=== PATIENT | female | born 1960 | race Caucasian/White ===

== ENCOUNTER → 2023-08-24 06:34 | Day surgery (SDC) | payer MEDICARE, OTHER, SELFPAY | LOC: GI 06:34 | PROVIDERS: ATTENDING PHYSICIAN Internal Medicine Gastroenterology | DX: K52.9 Noninfective gastroenteritis and colitis, unspecified (principal); Z53.8 Procedure and treatment not carried out for other reasons | CPT/HCPCS: 45378; G0378 ==

== ENCOUNTER → 2023-09-03 06:27 | Day surgery (SDC) | payer MEDICARE, OTHER, SELFPAY ==
--- NOTE | 2023-09-03 15:17 | VATNOTE ---
Multiple unsuccessful attempts to place PIV by two VAT RNs, as well as anesthesia. Midline placed.
== END ==
LOC: GI 06:27
PROVIDERS: ATTENDING PHYSICIAN Internal Medicine Gastroenterology
DX: K57.30 Diverticulosis of large intestine without perforation or abscess without bleeding (principal); K64.8 Other hemorrhoids; K29.80 Duodenitis without bleeding; K29.70 Gastritis, unspecified, without bleeding; R93.3 Abnormal findings on diagnostic imaging of other parts of digestive tract; R13.10 Dysphagia, unspecified; Z87.19 Personal history of other diseases of the digestive system
CPT/HCPCS: 45380; 43239; 88305; 88342